=== PATIENT | male | born 1965 | race Caucasian/White ===

== ENCOUNTER 2022-11-27 10:50 | Emergency (ER) | payer SELFPAY ==
[~2022-11-27] VITALS: Ht 185.4 cm; Wt 79.4 kg
[2022-11-27 11:00] VITALS: O2SAT 99
[2022-11-27] MEDS ORDERED: HYDROMORPHONE 1 MG/1 ML DISP.SYRIN IV ONE (11:00)
[2022-11-27] MEDS ORDERED: ONDANSETRON 4 MG/2 ML VIAL IV ONE (11:00)
[2022-11-27] MEDS ORDERED: ONDANSETRON 4 MG/2 ML VIAL ONE (11:34)
[2022-11-27] MEDS ORDERED: HYDROMORPHONE 1 MG/1 ML DISP.SYRIN ONE (11:35)
[2022-11-27] MEDS ORDERED: OXYC10TA49 PO (13:34)
[2022-11-28] MEDS ORDERED: OXYC-133 PO (22:50)
== END 2022-11-27 14:03 | disposition home or self-care (01) ==
LOC: ER 10:50
DX: S62.211A Bennett's fracture, right hand, initial encounter for closed fracture (principal); S52.502A Unspecified fracture of the lower end of left radius, initial encounter for closed fracture; Z79.899 Other long term (current) drug therapy; V87.8XXA Person injured in other specified noncollision transport accidents involving motor vehicle (traffic), initial encounter; Y93.89 Activity, other specified; Y92.89 Other specified places as the place of occurrence of the external cause; Y99.8 Other external cause status
CPT/HCPCS: 29125; 73090; 73100; 73120; 73130; 73140; 96374; 96375; 99284; J1170; J2405; A4663